=== PATIENT | female | born 1990 | race Caucasian/White ===

== ENCOUNTER 2016-11-02 00:07 | Observation (INO) | payer BC | END 2016-11-02 01:37 | disposition T | LOC: LDR 00:07 | PROVIDERS: ADMIT Obstetrics & Gynecology | DX: O46.93 Antepartum hemorrhage, unspecified, third trimester (principal); O99.283 Endocrine, nutritional and metabolic diseases complicating pregnancy, third trimester; E06.3 Autoimmune thyroiditis; Z3A.37 37 weeks gestation of pregnancy; Z79.899 Other long term (current) drug therapy ==

== ENCOUNTER 2016-11-18 07:52 | Inpatient (IN) | payer BC ==
[2016-11-18] MEDS ORDERED: PRENA1 CHEW TA1.4 M1 PO (09:05)
[2016-11-18] MEDS ORDERED: VITAMIN D31000 UNI3 PO (09:05)
[2016-11-18] MEDS ORDERED: LEVOTHYROXINE137 MC1 PO (09:06)
[2016-11-18] MEDS ORDERED: ACID CONTROL150 M2 PO (09:07)
[2016-11-18] MEDS ORDERED: TUMS200 MG CH (09:08)
[2016-11-18 10:58] LABS: BASO % 0.1 % (0-2); EOS % 0.9 % (0-7); EOSINOPHIL ABSOLUTE COUNT 0.1 tho/cmm (0.0-0.7); HCT-HEMATOCRIT 33.8 % (34.0-49.0); HGB-HEMOGLOBIN 10.9 gm/dl (12.0-15.5); IMMATURE GRANULOCYTES ABSOLUTE 0.04 tho/cmm (0-0.03); IMMATURE GRANULOCYTES PERCENT 0.3 % (0-0.3); LYMPH % 13.7 % (20-45); LYMPH ABSOLUTE COUNT 1.6 tho/cmm (0.8-4.5); MCH (MEAN CORPUSCULAR HGB) 26.2 pg (28.0-32.0); MCHC MEAN CORPUSCULAR HGB CONC 32.2 % (32.0-36.0); MCV (MEAN CELL VOLUME) 81.3 fl (82.0-96.0); MONO % 4.7 % (0-12); MONOCYTE ABSOLUTE COUNT 0.6 tho/cmm (0.0-1.2); NEUTROPHIL ABSOLUTE COUNT 9.4 tho/cmm (1.6-8.0); NEUTROPHIL-AUTOMATED 9.4 tho/cmm (1.6-8.0); NEUTROPHILS % 80.3 % (40-80); PLATELET COUNT 279 tho/cmm (150-450); RED BLOOD COUNT 4.16 mil/cmm (4.00-5.20); RED CELL DISTRIBUTION WIDTH 14.4 % (12.4-16.4); WHITE BLOOD COUNT 11.7 tho/cmm (4.0-10.0)
[2016-11-19 05:15] LABS: BASO % 0.1 % (0-2); EOS % 0.8 % (0-7); EOSINOPHIL ABSOLUTE COUNT 0.1 tho/cmm (0.0-0.7); HCT-HEMATOCRIT 28.9 % (34.0-49.0); HGB-HEMOGLOBIN 9.2 gm/dl (12.0-15.5); IMMATURE GRANULOCYTES ABSOLUTE 0.04 tho/cmm (0-0.03); IMMATURE GRANULOCYTES PERCENT 0.3 % (0-0.3); LYMPH % 14.7 % (20-45); LYMPH ABSOLUTE COUNT 2.1 tho/cmm (0.8-4.5); MCH (MEAN CORPUSCULAR HGB) 25.9 pg (28.0-32.0); MCHC MEAN CORPUSCULAR HGB CONC 31.8 % (32.0-36.0); MCV (MEAN CELL VOLUME) 81.4 fl (82.0-96.0); MEAN PLATELET VOLUME 9.7 cmc (9.4-12.4); MONO % 5.6 % (0-12); MONOCYTE ABSOLUTE COUNT 0.8 tho/cmm (0.0-1.2); NEUTROPHIL ABSOLUTE COUNT 11.3 tho/cmm (1.6-8.0); NEUTROPHIL-AUTOMATED 11.3 tho/cmm (1.6-8.0); NEUTROPHILS % 78.5 % (40-80); PLATELET COUNT 230 tho/cmm (150-450); RED BLOOD COUNT 3.55 mil/cmm (4.00-5.20); RED CELL DISTRIBUTION WIDTH 14.3 % (12.4-16.4); WHITE BLOOD COUNT 14.3 tho/cmm (4.0-10.0)
[2016-11-20] MEDS ORDERED: NORCO 5-325 TA1 EACH PO (15:48)
[2016-11-20] MEDS ORDERED: FERREX 150150 M1 PO (15:49)
[2016-11-20] MEDS ORDERED: IBUPROFEN800 M1 PO (15:49)
== END 2016-11-20 18:55 | DRG 775 ==
LOC: LDR 07:52 → OBGD 11-20 15:01
PROVIDERS: Anesthesiology; ADMIT Family Medicine
PROC: 10E0XZZ Delivery of Products of Conception, External Approach (ICD-10-PCS; principal; 2016-11-18)
PROC: 10907ZC Drainage of Amniotic Fluid, Therapeutic from Products of Conception, Via Natural or Artificial Opening (ICD-10-PCS; 2016-11-18)
PROC: 0HQ9XZZ Repair Perineum Skin, External Approach (ICD-10-PCS; 2016-11-18)
DX: O99.824 Streptococcus B carrier state complicating childbirth (principal); D62 Acute posthemorrhagic anemia; Z3A.39 39 weeks gestation of pregnancy; Z37.0 Single live birth; O70.1 Second degree perineal laceration during delivery; O77.0 Labor and delivery complicated by meconium in amniotic fluid; O99.03 Anemia complicating the puerperium; E06.3 Autoimmune thyroiditis; O99.284 Endocrine, nutritional and metabolic diseases complicating childbirth
CPT/HCPCS: J2210; J2540; J2590